=== PATIENT | male | born 1960 | race Caucasian/White ===

== ENCOUNTER → 2020-02-12 | Outpatient (CLI) | payer OTHER ==
[~2020-02-12] MED LIST: ACETAMINOPHEN W1 TA6 PO; COUMADIN 5MG5 MG/TAB PO; COUMADIN PO; COUMADIN4 MG PO; HCTZ 25MG TAB25 MG PO; KEPPRA 500MG500 MG PO; KEPPRA1000 MG PO; LOVENOX 6060 MG/0.6 SQ; LOVENOX60 MG/0.6 SC; MULTAQ400 MG PO; PERCOCET 325 MG1 TA2 PO; REMERON45 MG PO; SINEQUAN 1100 MG/CAP PO; TOPROL XL 25MG25 MG PO; TYLENOL 500MG500 MG PO; VITAMIN D32000 I1 PO; WARFARIN SOD5 MG PO; ZOCOR 20MG20 MG PO; ZOCOR 80MG80 MG PO
== END ==
LOC: COL.PUL 12:27
DX: J44.9 Chronic obstructive pulmonary disease, unspecified (principal); Z87.891 Personal history of nicotine dependence
CPT/HCPCS: J7674

== ENCOUNTER 2020-08-02 05:36 | Day surgery (SDC) | payer MEDICARE, OTHER ==
[~2020-08-02] VITALS: Ht 170.2 cm; Wt 61.2 kg
[2020-08-02] VITALS (7 sets, daily range): BP systolic 147–162; BP diastolic 80–101; PULSE 59–65; TEMP 97.4–98.3
[2020-08-02] MEDS ORDERED: PERIACTIN 4MG TA4 MG PO (06:35)
[2020-08-02] MEDS ORDERED: CYMBALTA 30MG30 MG PO (06:35)
[2020-08-02] MEDS ORDERED: LIDODERM 5% PATC1 EA TP (06:36)
[2020-08-02] MEDS ORDERED: SPIRIVA RE2.5 MCG/Ac IH (06:37)
[2020-08-02] MEDS ORDERED: PRAVACHOL80 MG PO (06:37)
[2020-08-02] MEDS ORDERED: NICORETTE2 M1 PO (06:37)
[2020-08-02] MEDS ORDERED: PROAIR HFA0.09 MG/AC IH (06:38)
[2020-08-02] MEDS ORDERED: LIDO35.4 TOP (06:39)
[2020-08-02] MEDS ORDERED: DICLOZOR1 EACH TOP (06:39)
[2020-08-02] MEDS ORDERED: SPORANOX100 MG PO (06:39)
[2020-08-02] MEDS ORDERED: TOPROL XL 50MG50 MG PO (06:40)
[2020-08-02] MEDS ORDERED: REMERON30 MG PO (06:41)
--- NOTE | 2020-08-02 07:09 | NUR ---
Dr. Kilgore is notified that a H&P was never received from his office pre-op. He requests and receives a "short form" H&P to complete.
--- NOTE | 2020-08-02 09:30 | NUR ---
Report received from EPI Bustamante, in PACU. Pt transferred via this RN from PACU to [place] [id number] via cart. Monitors on and alarms set. Call light within reach. Pt alert and oriented. Pt requests muffin, applesauce, crackers, juice, and water. Pt denies pain or nausea. No complications voiced.
--- NOTE | 2020-08-02 09:45 | NUR ---
Call to pt's daughter to inform her of pt condition and location. All questions answered to her satisfaction.
--- NOTE | 2020-08-02 10:00 | NUR ---
Pt eating and drinking well.
--- NOTE | 2020-08-02 11:10 | NUR ---
Pt ambulates to restroom with Sonia RN assist, without complications. Pt urinates and returns with RN assist to [place] [facility].
--- NOTE | 2020-08-02 11:30 | NUR ---
Discharge instructions completed with pt and daughter via phone. All questions answered to their satisfaction. Handed to pt are a thank you card, prescriptions, PT orders, diagnosis information, prescription information, and a discharge med sheet.
--- NOTE | 2020-08-02 11:45 | NUR ---
Pt transferred out of hospital via wheelchair and this RN assist, to private vehicle driven by family.
== END 2020-08-02 11:45 | disposition home or self-care (01) ==
LOC: SDCO 05:36
DX: M75.42 Impingement syndrome of left shoulder (principal); S43.432A Superior glenoid labrum lesion of left shoulder, initial encounter; X50.9XXA Other and unspecified overexertion or strenuous movements or postures, initial encounter; J43.9 Emphysema, unspecified; I48.0 Paroxysmal atrial fibrillation; G47.33 Obstructive sleep apnea (adult) (pediatric); K21.9 Gastro-esophageal reflux disease without esophagitis; Z20.828 Contact with and (suspected) exposure to other viral communicable diseases; R56.9 Unspecified convulsions; I12.9 Hypertensive chronic kidney disease with stage 1 through stage 4 chronic kidney disease, or unspecified chronic kidney disease; N18.9 Chronic kidney disease, unspecified; F51.05 Insomnia due to other mental disorder; I25.10 Atherosclerotic heart disease of native coronary artery without angina pectoris; F32.9 Major depressive disorder, single episode, unspecified; F43.10 Post-traumatic stress disorder, unspecified; Z86.73 Personal history of transient ischemic attack (TIA), and cerebral infarction without residual deficits; Z79.01 Long term (current) use of anticoagulants; Z85.820 Personal history of malignant melanoma of skin; Z88.8 Allergy status to other drugs, medicaments and biological substances; Z88.0 Allergy status to penicillin; Z95.2 Presence of prosthetic heart valve; Z95.0 Presence of cardiac pacemaker; Z79.899 Other long term (current) drug therapy; Z87.891 Personal history of nicotine dependence; Z79.51 Long term (current) use of inhaled steroids
CPT/HCPCS: A4619; C1713; J0690; J1100; J1885; J2250; J2405; J2704; J2795; J3010; J7120